=== PATIENT | male | born 1945 | race Caucasian/White ===

== ENCOUNTER 2017-02-27 13:36 | Inpatient (IN) | payer MEDICARE ==
--- NOTE | ~2017-02-27 | PRECARD ---
H&P [facility] [address] [place]. [address] NAME: JULISA MENDOZA SR : 47 STATUS : ADM IN [facility]#: [id number] AGE: 71 ADM/REG DATE : 02/27/17 MR#: [id number] REPORT SERV DATE: 02/28/17 DICTATED BY: ONEL MASON DATE: 02/28/17 REPORT STATUS : Draft TRANSCRIBED BY: GER DATE: 02/28/17 DATE OF ADMISSION: 02/27/2017 HISTORY OF PRESENT ILLNESS: Mr. Julisa Mendoza, Sr., is a 71-year-old gentleman, who admitted with a left tibia-fibular fracture, he is scheduled for ORIF today, the Hospitalist Team consulted us. Mr. Mendoza has known coronary artery disease, he had prior anterior infarct presentation that was in 08/2006. He was treated with thrombectomy only, stent was not placed. His ejection fraction most recently was 45% by echo 07/2016. He does have a single-chamber AICD. He has been doing well from a cardiac perspective. He absolutely denies any chest discomfort, orthopnea, PND. No palpitations. He has had no stroke or stroke-like symptoms. He has no exercise limitations. , he was stacking metal, and tripped, resulting in this fracture. His exercise tolerance is excellent. He has had no limitations whatsoever. PAST MEDICAL HISTORY: Hyperlipidemia, prior tobacco use, coronary artery disease. MEDICATIONS: Prior to admission were aspirin, carvedilol, Celexa, lisinopril, MiraLax, Crestor. FAMILY HISTORY: Noncontributory. REVIEW OF SYSTEMS: A complete review of systems obtained, pertinent negative and unremarkable except as noted above and below all systems addressed. PHYSICAL EXAMINATION: VITAL SIGNS: Blood pressure about 130/70. GENERAL: Comfortable, in no acute distress. HEENT: No xanthelasma; lips without cyanosis. LUNGS: Clear to auscultation, no wheezes, rales or rhonchi; good breath sounds. COR: No JVD or hepatojugular reflux, no murmurs, rubs or gallops, impulse mid clavicular line without carotid or abdominal bruits; normal S1 and S2. ABDOMEN: Bowel sounds positive, normal activity, without tenderness, masses or hepatosplenomegaly. EXTREMITIES: No edema, cyanosis. SKIN: Normal turgor. MS: Normal muscle strength, without kyphosis/scoliosis. NEURO/PSYCH: Alert and oriented times 4, no apparent anxiety or depression. DATA: BUN is 16, creatinine 0.9. Hematocrit is 39.1. EKG is sinus rhythm with anterior infarct without ischemia, left axis deviation. H&P [address] [address] NAME: JULISA MENDOZA SR : 46 STATUS : ADM IN [facility]#: [id number] AGE: 71 ADM/REG DATE : 02/27/17 MR#: [id number] REPORT SERV DATE: 02/28/17 DICTATED BY: ONEL MASON DATE: 02/28/17 REPORT STATUS : Draft TRANSCRIBED BY: GER DATE: 02/28/17 ASSESSMENT: Mr. Mendoza is a very nice, 71-year-old, gentleman with known coronary artery disease. He had myocardial infarction 11 years ago. His ejection fraction is 45%. He has had no chest discomfort, no heart failure symptoms for many years. He is on excellent medical regimen. His blood pressure is controlled. He is in sinus rhythm. PLAN: There is no cardiac contraindication to orthopedic surgery today. Continue current medical regimen. He is not on Plavix. He does have a [employer] AICD, I will ask that to be for the surgery. MAGUE/GER Onel Mason M.D. / [id number] CC: MD Esdras Arias M.D.
--- NOTE | ~2017-02-27 | CN ---
Consultation Report [facility] [address] [place]. [address] NAME: JULISA MENDOZA SR : 46 STATUS : ADM IN PAT#: [id number] AGE: 71 ADM/REG DATE : 02/27/17 MR#: [id number] REPORT SERV DATE: 02/28/17 DICTATED BY: BRIDGET JONES DATE: 02/27/17 REPORT STATUS : Draft TRANSCRIBED BY: MODL DATE: 02/27/17 DATE OF CONSULTATION: 02/27/2017 REASON FOR CONSULTATION: Consulted for medical management and preop clearance. IDENTIFYING DATA: 1. PCP: Esdras Negron M.D. 2. Recreation Therapy Aide: Isidro Mason M.D. 3. Urologist: Jean Carlos Nguyen M.D. 4. Public Relations Sales Marketing Parish Cavanaugh M.D. HISTORY OF PRESENT ILLNESS: This is a pleasant 71-year-old male, who is admitted by orthopedist, status post fall with a left proximal fibula and distal fibula fracture, post malleolar fracture and distal tibia fracture. The patient is very active at home. States he was stacking metal siding and his foot got tangled. He fell on his left knee and left elbow. He is scheduled for an ORIF of the left tibia and fibula tomorrow on 02/28/[address] Sridhar Alejandre. The patient has a history of coronary artery disease, hypertension, and CA in 2005. An AICD and permanent pacemaker placement in 2006 with an AICD replaced again in 2013, previous heart catheterization with thrombectomy, and also a radical prostatectomy for adenocarcinoma of the prostate. The patient presently has no complaints of any cardiac symptoms. The hospitalist group has been consulted to help in medical management of this patient postoperatively and to actually evaluate for preoperative clearance for surgery. The patient's history was obtained through careful interview with the patient coupled with review of [employer] and [employer]. PAST MEDICAL HISTORY: 1. Myopia. 2. Presbyopia. 3. AICD. 4. High cholesterol. 5. Detached retina. 6. Hearing loss. 7. Dysrhythmias. 8. CA in 2005. 9. Hypertension. 10.Chest pain. 11.Depression. 12.Hemorrhoids. 13.Polyps. 14.Prostate cancer. 15.Diverticulosis. 16.Diverticulitis. 17.Heart failure. Consultation Report [facility] [address] [place]. [address] NAME: JULISA MENDOZA SR : 46 STATUS : ADM IN PAT#: [id number] AGE: 71 ADM/REG DATE : 02/27/17 MR#: [id number] REPORT SERV DATE: 02/28/17 DICTATED BY: BRIDGET JONES DATE: 02/27/17 REPORT STATUS : Draft TRANSCRIBED BY: GER DATE: 02/27/17 HOME MEDICATIONS: 1. Enteric coated aspirin 81 mg p.o. at bedtime. 2. Coreg 25 mg p.o. twice a day. 3. Celexa 40 mg p.o. daily. 4. Lisinopril 40 mg p.o. with lunch. 5. MiraLAX powder one packet daily p.o. 6. Crestor 40 mg p.o. at bedtime. ALLERGIES: TO SULFA AND CODEINE. SOCIAL HISTORY: The patient is for 40 years between him and his , they have five children, ten grandchildren and eight great grandchildren. No smoking, alcohol, or illicit drug use. He is very active at home. They do have a single-level home with just a few stairs. He states he has no shortness of breath or chest pain and can climb at least 1 to 2 flights of steps without difficulty. FAMILY HISTORY: Mother is positive for heart disease. Father was positive for diabetes. The patient has one sister who is alive and healthy. SURGICAL HISTORY: 1. AICD and permanent pacemaker placement in 12/2006. The defibrillator was placed by [facility]. The AICD was placed by Dr. Iraj Nelson. 2. AICD replaced on 04/17/2014. 3. The patient had an CA in 2005 which was an anterior CA seen by Dr. Francis Yanes for which he had a cardiac cath with thrombectomy of the proximal LAD and a PTCA of the proximal LAD. No stent placement. 4. Radical prostatectomy for adenocarcinoma of the prostate seen at that time by Sd Shah, on 08/20/2014. REVIEW OF SYSTEMS: Negative other than what is included in HPI. Presently, the patient has no complaints of shortness of breath. No complaints of chest pain. No fever. No nausea or vomiting. No abdominal pain. Displays no agitation or confusion. He is alert and oriented x3. PHYSICAL EXAMINATION: VITAL SIGNS: From today, blood pressure 122/60, respiratory rate 14, heart rate 52, temperature 98.0, O2 saturation 96% on room air. GENERAL: This is a 71-year-old male, resting in bed in no acute distress. His is at the bed site. NEURO: Head is atraumatic, normocephalic. He is alert and oriented x3. His cranial nerves II through XII are grossly intact. His mood is pleasant and appropriate. NECK: Supple. Trachea is midline. No JVD noted. No obvious thyromegaly or lymphadenopathy. EENT: Sclerae are nonicteric. Pupils are equal and reactive to light. Nares are patent. Consultation Report [facility] [id number] [place]. [address] NAME: JULISA MENDOZA : 46 STATUS : ADM IN [facility]#: [id number] AGE: 71 ADM/REG DATE : 02/27/17 MR#: [id number] REPORT SERV DATE: 02/28/17 DICTATED BY: BRIDGET JONES DATE: 02/27/17 REPORT STATUS : Draft TRANSCRIBED BY: MODL DATE: 02/27/17 Mucous membranes moist. Tongue is midline without deviation. Soft palate rises equally with phonation. CHEST: No pain with palpation. LUNGS: Clear to auscultation bilaterally. The patient has normal respiratory effort. He has no increased work of breathing with conversation. CARDIOVASCULAR: S1, S2 with no appreciable murmurs, rubs, or gallops. Rhythm is regular on telemetry, displays sinus bradycardia with the rate at 53. ABDOMEN: Obese, soft, nontender. Bowel sounds are positive. No palpable organomegaly. Last bowel movement on 02/27/2017. EXTREMITIES: Right lower extremity, normal distal pulses. No calf tenderness. No edema. Left lower extremity has a dressing, that is clean, dry, and intact with an Corwin wrap from his knee to his toes. SKIN: Warm and dry. No unusual rashes or lesions. Normal color and turgor. PSYCH: The patient is pleasant, cooperative. Appropriate mood and affect. LABORATORY DATA: Sodium 139, potassium 4.3, chloride 105, BUN 16, creatinine 0.99. GFR 89. Glucose 100, calcium 8.4. White blood cells 6.9, hemoglobin 13.6, hematocrit 39.1, platelets 106. INR 1.2. On 02/27/2017, he had an EKG, that displayed a sinus rhythm with first degree heart block, left axis deviation, nonspecific IVCD, and nonspecific T-wave abnormality. On 07/11/2016, [facility] had ordered an echo on the patient which showed decreased left ventricular systolic function with an EF approximately 45%, mild diastolic dysfunction. Normal right ventricular chamber size and systolic function. No significant valvular regurg or stenosis visualized. On 04/09/2013, Dr. Isidro Mason, ordered an aortic duplex study which showed no aneurysm or obstruction to flow. ASSESSMENT AND PLAN: 1. The patient has history of coronary artery disease. He has had a previous anterior CA in 2005, history of hypertension, heart failure, had an AICD and a permanent pacemaker placed. Aware. The patient will be placed on cardiac diet. He is n.p.o. after midnight for now. His Coreg and lisinopril will be continued. His aspirin will need to be held for surgery on 02/28/2017. We will need to obtain old records. He states he saw Dr. Mason, the first of this year and have Dr. Mason to see him in the morning for cardiac clearance. 2. Hypercholesterolemia. Aware. We will continue his Crestor. 3. Depression. Aware. We will continue his Celexa. 4. Labs: CBC, BMP, PT, PTT, INR, chest x-ray, AP and lateral of the left knee ordered by orthopedist, BNP, magnesium, phosphorus, urinalysis to be obtained. 5. The patient is a 71-year-old male, being evaluated preoperative for clearance for an ORIF of the left tibia and fibula. There is no urinalysis on the chart present. The patient does have identified risk factors. He has had an CA in the past. He has an AICD and pacer, has a history of heart failure, hypertension, coronary artery Consultation Report [address] [place]. [address] NAME: JULISA MENDOZA SR : 46 STATUS : ADM IN PAT#: [id number] AGE: 71 ADM/REG DATE : 02/27/17 MR#: [id number] REPORT SERV DATE: 02/28/17 DICTATED BY: BRIDGET JONES DATE: 02/27/17 REPORT STATUS : Draft TRANSCRIBED BY: GER DATE: 02/27/17 disease. We will obtain input from Dr. Mason in the morning regarding his cardiac clearance since he just saw him around November or December of this year. Further input regarding cardiac clearance also from the IM team. After clearance from the IM and further lab and urinalysis on the chart, we would recommend proceeding with surgery at Dr. Alejandre's discretion. The hospitalist group would like to thank you for this consultation. Please let us know if we can be of further assistance. MICHELINE Bridget Jones NP / [id number] CC: MD Esdras Arias M.D.
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
--- NOTE | ~2017-02-27 | OP ---
Record Of Operation [facility] [address] [place]. [address] NAME: JULISA MENDOZA SR : 46 STATUS : ADM IN PAT#: [id number] AGE: 71 ADM/REG DATE : 02/27/17 MR#: [id number] REPORT SERV DATE: 03/02/17 DICTATED BY: MEGAN LOW DATE: 03/02/17 REPORT STATUS : Draft TRANSCRIBED BY: MODAbilio DATE: 03/02/17 DATE OF PROCEDURE: 02/28/2017 PREOPERATIVE DIAGNOSIS: Left distal tib-fib fracture. POSTOPERATIVE DIAGNOSIS: Left distal tib-fib fracture. PROCEDURES: Open reduction and internal fixation of a left distal tibia and fibular fracture. ANESTHESIA: General. COMPLICATIONS: None. INDICATION FOR OPERATION: Julisa Mendoza is a pleasant, 71-year-old male, suffered the above-mentioned injury. Risks and benefits of surgical intervention were discussed at length with the patient. All of his questions were answered, and he wished to proceed. DESCRIPTION OF PROCEDURE: Mr. Mendoza was brought back to operating room, where general anesthesia was initiated. Left lower extremity was prepped and draped in the usual sterile fashion. Esmarch exsanguination was utilized and a well-padded tourniquet was inflated. Longitudinal incision was made over the lateral aspect of the distal fibula. Blunt dissection was used to protect local neurovascular structures. Limited subperiosteal dissection was used to expose the fracture. This was an interesting fracture and that it was more comminuted than it appeared on the x-ray. One of the anterior pieces was attached to the AITFL. This piece was flipped 90 degrees and preventing a reduction. We gently recreated the fracture pattern which disimpacted this fracture. Irrigation and aspiration of the hematoma was performed. We then performed an anatomic reduction of the fibula despite all the comminution. Once reduced, we used the Arthrex ankle fracture set. An Arthrex distal fibular plate was placed on the bone. Combination of locking and nonlocking screws were used to secure the plate to the bone. Next, we approached the distal tibial fracture. An incision was made. Blunt dissection was used to protect local neurovascular structures. Limited subperiosteal dissection was used to expose this distal tibial spiral fracture. An anatomic reduction of the distal tibia was performed followed by placement of an Arthrex medial Pilon plate. The plate was slid subperiosteally along the tibia. A small proximal incision was made for screw placement. A combination of locking and nonlocking screws were used to secure the plate to the bone. Final FluoroScan imaging included AP, mortise, and lateral views of the ankle. Imaging confirmed acceptable position of the hardware as well as the fracture. Images were printed and saved. Copious irrigation was repeated throughout this case. Deep tissue was closed over the hardware with interrupted 2-0 Vicryl suture. Subcutaneous tissues and skin were closed using a "no-touch" technique with skin closure being 2-0 nylon suture. Bulky sterile dressings were applied and a well-padded posterior splint was placed. The patient did well throughout the case. He awoke in the operating room and was transferred to recovery room in satisfactory condition. Record Of Operation [facility] [address] [facility]. [address] NAME: JULISA MENDOZA : 47 STATUS : ADM IN [facility]#: [id number] AGE: 71 ADM/REG DATE : 02/27/17 MR#: [id number] REPORT SERV DATE: 03/02/17 DICTATED BY: MEGAN LOW DATE: 03/02/17 REPORT STATUS : Draft TRANSCRIBED BY: GER DATE: 03/02/17 DONNELL/GER Megan Low MD / [id number] CC: MD Esdras Arias M.D.
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
[~2017-02-27 13:36] MED LIST: ASAB PO; CELEXA40 MG PO; COREG25 PO; CRESTOR40 MG PO; FISH OIL1200 MG PO; FISH-EPA1000 MG PO; MIRALAXPKT PO; PRIN20 PO; ULTRAM50; ULTRAM50 PO; ZOFRAN4 PO
[2017-02-27] MEDS ORDERED: LISINOPRIL40 MG PO (16:29)
[2017-02-27] MEDS ORDERED: MIRALAX POWDER1 PKT PO (16:29)
[2017-02-27] MEDS ORDERED: COREG25 PO (16:29)
[2017-02-27] MEDS ORDERED: ASAEC PO (16:29)
[2017-02-27] MEDS ORDERED: CELEXA40 MG PO (16:30)
[2017-02-27] MEDS ORDERED: CRESTOR40 MG PO (16:30)
[2017-02-27 18:28] LABS: BASOPHILS 0.1 %; BASOPHILS ABSOLUTE 0.01 10/3/uL (0.0-0.16); EOSINOPHILS 1.2 %; EOSINOPHILS ABSOLUTE 0.08 10/3/uL (0.0-0.53); ER CBC TAT 0 Hrs 10 Mins; HEMATOCRIT 39.1 % (40.0-51.0); HEMOGLOBIN 13.6 g/dL (13.6-17.8); LYMPHOCYTES 17.8 %; LYMPHOCYTES ABSOLUTE 1.23 10/3/uL (0.67-4.30); MEAN CORPUS HGB CONC 34.8 g/dL (32.0-36.0); MEAN CORPUSCULAR HEMOGLOB 30.8 pg (26.0-34.0); MEAN CORPUSCULAR VOLUME 88.5 fL (80-100); MEAN PLATELET VOLUME 10.2 fL (9.2-13.0); MONOCYTES 8.2 %; MONOCYTES ABSOLUTE 0.57 10/3/uL (0.21-1.20); NEUTROPHILS 72.7 %; NEUTROPHILS ABSOLUTE 5.03 10/3/uL (2.02-8.40); PLATELET COUNT 106 10/3/uL (150-400); RBC DISTRIBUTION WIDTH 13.8 % (12.0-16.0); RED CELL COUNT 4.42 10/6/uL (4.7-6.1); WHITE BLOOD CELLS 6.9 10/3/uL (4.5-10.5)
[2017-02-27 18:30] LABS: MANUAL DIFF NO %
[2017-02-27 18:39] LABS: INTERNATIONAL NORMAL RATI 1.2 UNITS (-); PROTIME (NOT ORD) 14.6 SEC (12.0-14.5)
[2017-02-27 18:42] LABS: BUN (BLOOD UREA NITROGEN) 16 MG/DL (6-23); CALCIUM, SERUM 8.4 MG/DL (8.5-10.4); CHLORIDE, SERUM 105 MMOL/L (96-112); CO2 (CARBON DIOXIDE) 28 MMOL/L (24-34); CREATININE 0.99 MG/DL (0.70-1.30); GFR AFRICAN AMERICAN 89 ML/MIN (>=60); GFR NON AFRICAN AMERICAN 77 ML/MIN (>=60); GLUCOSE, SERUM 100 MG/DL (60-99); POTASSIUM, SERUM 4.3 MMOL/L (3.5-5.3); SODIUM, SERUM 139 MMOL/L (135-148)
[2017-02-27 22:55] LABS: PHOSPHORUS, SERUM 3.5 MG/DL (2.5-4.5)
[2017-02-28 08:04] LABS: ASCORBIC ACID (UR NOT ORDER) NEG (NEG); BILIRUBIN, URINE NEGATIVE (NEG); KETONE, URINE NEGATIVE (NEG); LEUKOCYTE ESTERASE(NOT OR NEG (NEG); WBC (NOT ORDERED) (RFLEX) < 1 (0-5)
[2017-03-01 04:53] LABS: BASOPHILS 0 %; EOSINOPHILS 0 %; HEMATOCRIT 36.8 % (40.0-51.0); HEMOGLOBIN 12.5 g/dL (13.6-17.8); IMMATURE GRANULOCYTES 0.3 %; IMMATURE GRANULOCYTES ABSOLUTE 0.02 10/3/uL (0.0-0.11); LYMPHOCYTES ABSOLUTE 0.52 10/3/uL (0.67-4.30); MEAN CORPUSCULAR HEMOGLOB 30.5 pg (26.0-34.0); MEAN CORPUSCULAR VOLUME 89.8 fL (80-100); MONOCYTES 5.7 %; MONOCYTES ABSOLUTE 0.33 10/3/uL (0.21-1.20); NEUTROPHILS ABSOLUTE 4.89 10/3/uL (2.02-8.40); PLATELET COUNT 99 10/3/uL (150-400); RBC DISTRIBUTION WIDTH 13.9 % (12.0-16.0); WHITE BLOOD CELLS 5.8 10/3/uL (4.5-10.5)
[2017-03-01 04:54] LABS: MANUAL DIFF NO %
[2017-03-01 05:08] LABS: BUN (BLOOD UREA NITROGEN) 14 MG/DL (6-23); CHLORIDE, SERUM 103 MMOL/L (96-112); CO2 (CARBON DIOXIDE) 27 MMOL/L (24-34); CREATININE 0.89 MG/DL (0.70-1.30); GFR AFRICAN AMERICAN 100 ML/MIN (>=60); GFR NON AFRICAN AMERICAN 87 ML/MIN (>=60); POTASSIUM, SERUM 4.6 MMOL/L (3.5-5.3); SODIUM, SERUM 138 MMOL/L (135-148)
[2017-03-01 05:17] LABS: GLUCOSE, SERUM 129 MG/DL (60-99)
[2017-03-03] MEDS ORDERED: PR25 PO (07:10)
[2017-03-03] MEDS ORDERED: PCET PO (07:11)
== END 2017-03-03 16:54 | disposition home or self-care (01) | DRG 494 ==
LOC: ER 13:36 → 3SO 16:54
PROVIDERS: Internal Medicine; Nurse Practitioner; Nurse Practitioner Family
PROC: 0QSK04Z Reposition Left Fibula with Internal Fixation Device, Open Approach (ICD-10-PCS; principal; 2017-02-27)
PROC: 0QSH04Z Reposition Left Tibia with Internal Fixation Device, Open Approach (ICD-10-PCS; 2017-02-27)
DX: S82.302A Unspecified fracture of lower end of left tibia, initial encounter for closed fracture (principal); I25.5 Ischemic cardiomyopathy; F32.9 Major depressive disorder, single episode, unspecified; I25.10 Atherosclerotic heart disease of native coronary artery without angina pectoris; S82.832A Other fracture of upper and lower end of left fibula, initial encounter for closed fracture; W18.30XA Fall on same level, unspecified, initial encounter; I25.2 Old myocardial infarction; Z95.810 Presence of automatic (implantable) cardiac defibrillator; E78.00 Pure hypercholesterolemia, unspecified; E78.5 Hyperlipidemia, unspecified
CPT/HCPCS: 71010; 73560-LT; 73590-LT; 73610-LT; 73630-LT; 76000; 80048; 81001; 83735; 83880; 84100; 85025; 85610; 85730; 90471; 90714; 93005; 96374; 97110-GP; 97116-GP; 97161-GP; 97165-GO; 97530-GP; 97542-GN; 99285; A9270-GY; C1713; G8987-CJ-GO; G8988-CI-GO; J0690; J1170; J2370; J2405; J2710; J3010